=== PATIENT | male | born 1970 | race Caucasian/White ===

== ENCOUNTER → 2019-04-16 | Outpatient (CLI) | payer MEDICAID, SELFPAY | END | disposition home or self-care (01) | LOC: SL 06:49 | PROVIDERS: Family Provider Student in an Organized Health Care Education/Training Program; PCP Student in an Organized Health Care Education/Training Program; Referring Provider Internal Medicine Critical Care Medicine; Visit Provider Internal Medicine Critical Care Medicine | DX: G47.33 Obstructive sleep apnea (adult) (pediatric) (principal) | CPT/HCPCS: 98960; G0463 ==

== ENCOUNTER → 2019-09-16 | Outpatient (CLI) | payer MEDICAID, SELFPAY ==
[2019-08-20 09:38] VITALS: BMI 37.8
== END | disposition home or self-care (01) ==
LOC: SL 19:51
PROVIDERS: Family Provider Student in an Organized Health Care Education/Training Program; PCP Student in an Organized Health Care Education/Training Program; Referring Provider Internal Medicine Critical Care Medicine; Visit Provider Internal Medicine Critical Care Medicine
DX: G47.33 Obstructive sleep apnea (adult) (pediatric) (principal)
CPT/HCPCS: 95811

== ENCOUNTER → 2019-10-08 06:39 | Outpatient (CLI) | payer MEDICAID, SELFPAY ==
[2019-08-20 09:38] VITALS: BMI 37.8
== END ==
PROVIDERS: Family Provider Student in an Organized Health Care Education/Training Program; PCP Student in an Organized Health Care Education/Training Program; Referring Provider Internal Medicine Critical Care Medicine; Visit Provider Internal Medicine Critical Care Medicine
DX: Z46.89 Encounter for fitting and adjustment of other specified devices (principal)

== ENCOUNTER → 2020-03-24 | Outpatient (CLI) | payer MEDICAID, SELFPAY ==
[2020-03-17 08:44] VITALS: BMI 37.8
--- NOTE | 2020-03-24 15:11 | MRI_ITS ---
STUDY: MRI RIGHT KNEE REASON FOR EXAM: Male, 50 years old. Pain. Twisting injury 7 months ago. TECHNIQUE: Standardized fat and water weighted pulse sequences were obtained in all 3 orthogonal planes. COMPARISON: None. FINDINGS: Normal medial meniscus. There is diffuse, less than 50% thickness articular cartilage loss of the medial femorotibial compartment. Normal medial femoral condyle and tibial plateau. Normal medial collateral ligamentous complex (MCL). Normal distal semimembranosus, gracilis and semitendinosus tendons. Normal lateral meniscus. Normal hyaline cartilage of the lateral femorotibial compartment. Normal lateral femoral condyle and tibial plateau. Normal proximal tibiofibular articulation. Normal lateral collateral (fibular) ligament. Normal popliteus tendon. Normal biceps femoris tendon. Normal anterior cruciate ligament (ACL). Normal posterior cruciate ligament (PCL). There is arthrosis of the patellofemoral articulation. There is diffuse, less than 50% thickness articular cartilage loss of the patellofemoral compartment. There is subchondral edema of the posterior patella. There is spurring of the patella. Normal medial and lateral patellar retinaculum. Normal quadriceps tendon. Normal patellar tendon. Normal Hoffa''s fat pad. There is a small volume joint effusion. The soft tissues are unremarkable. The otherwise visualized osseous structures are unremarkable. MRI/Lower Ext Joint Only (Routine) IMPRESSION: No meniscal tear. Degenerative change of the patellofemoral and medial compartments. Joint effusion. Electronically Signed: Chuck Ferrer MD at 14:46 EDT , Service support ,
== END | disposition home or self-care (01) ==
LOC: MRI 15:11
PROVIDERS: PCP Student in an Organized Health Care Education/Training Program; Referring Provider Orthopaedic Surgery; Visit Provider Orthopaedic Surgery
DX: M23.91 Unspecified internal derangement of right knee (principal)
CPT/HCPCS: 73721

== ENCOUNTER → 2021-08-31 16:45 | Outpatient (CLI) | payer MEDICAID, SELFPAY ==
--- NOTE | 2021-08-31 16:46 | MRI_ITS ---
EXAM: MR Lumbar Spine Without Intravenous Contrast CLINICAL INDICATION: 51 years old, Male; pain TECHNIQUE: Multiplanar and multisequence MR images of the lumbar spine without intravenous contrast. This report was created using [employer] report generation technology. COMPARISON: None. FINDINGS: Vertebrae: Schmorl''s nodes in the superior endplates of L3 and L4. Degenerative facet arthropathy lower lumbar spine. Vertebral body heights are preserved. Normal alignment. No spondylolisthesis. There is preservation of the normal lumbar lordosis. Spinal cord: Conus medullaris tip is at T12-L1. Soft tissues: Unremarkable. DISCS/SPINAL CANAL/NEURAL FORAMINA: L1-L2: Degenerative disc bulge at L1-L2 with left lateral disc protrusion causing ventral effacement of the thecal sac but no spinal canal stenosis. There is a mild left neural foraminal stenosis due to these findings. L2-L3: Unremarkable. Normal disc height and morphology. Normal spinal canal, lateral recesses and neuroforamina. L3-L4: Broad-based disc bulge at L3-L4 causes ventral effacement of the thecal sac but no significant spinal canal stenosis. There is a mild bilateral neural foraminal stenosis due to these findings. L4-L5: Broad-based disc bulge at L4-L5 causes no significant spinal canal stenosis but moderate bilateral neural foraminal stenoses. L5-S1: Central disc protrusion with annular tear at L5-S1 causes ventral effacement of the thecal sac but no significant stenosis. MRI/Spine Lumbar (Routine) IMPRESSION: 1. Degenerative disc bulge at L1-L2 with left lateral disc protrusion causing ventral effacement of the thecal sac but no spinal canal stenosis. There is a mild left neural foraminal stenosis due to these findings. 2. Broad-based disc bulge at L3-L4 causes ventral effacement of the thecal sac but no significant spinal canal stenosis. There is a mild bilateral neural foraminal stenosis due to these findings. 3. Broad-based disc bulge at L4-L5 causes no significant spinal canal stenosis but moderate bilateral neural foraminal stenoses. 4. Central disc protrusion with annular tear at L5-S1 causes ventral effacement of the thecal sac but no significant stenosis. ASSESSMENT: ABNORMAL report - There are abnormal findings in this report which may be related or unrelated to the reason for the exam. Electronically Signed: Yony Bishop MD at 21:57 EDT Tel , Service support ,
== END ==
PROVIDERS: PCP Student in an Organized Health Care Education/Training Program
DX: M47.816 Spondylosis without myelopathy or radiculopathy, lumbar region (principal); M53.3 Sacrococcygeal disorders, not elsewhere classified; M54.50 Low back pain, unspecified
CPT/HCPCS: 72148

== ENCOUNTER 2023-10-03 10:23 | Day surgery (SDC) | payer MEDICAID, SELFPAY ==
[2023-10-03] VITALS (7 sets, daily range): BP systolic 133–149; BP diastolic 86–95; PULSE 57–81; RESP 16–18; TEMP 36.2–37.4; O2SAT 93–100; BMI 35.7
[2023-10-03] MEDS: Lactated Ringers 1,000 ML 15 ML IV (10:59)
[2023-10-03] MEDS: Cefazolin 2 GM in 0.9% Normal Saline (100mL Bag) 100 ML IV (13:56)
--- NOTE | 2023-10-03 14:08 | RAD_ITS ---
STUDY: X-RAY - LUMBAR SPINE REASON FOR EXAM: Male, 53 years old. INSERTION, SPINAL CORD STIMULATOR TECHNIQUE: 2 view(s) of the lumbar spine were obtained. COMPARISON: None FINDINGS: 361 seconds of fluoroscopy of the thoracic spine was utilized operative room during a dorsal column spinal stimulator placement 2 images are cemented for interpretation.. . RAD/Lumbar Spine 2 or 3 Views IMPRESSION: Fluoroscopy during dorsal column spinal stimulator placement. Electronically Signed: Baudilio Sanchez MD at 0:08 EST ,
[2023-10-03] MEDS: Bupivacaine 0.25% 30 ML Vial (15:26)
[2023-10-03] MEDS: Lidocaine 1% /Epi 1:100 (50ml) 50 ML VIAL (15:29)
--- NOTE | 2023-10-03 18:17 | SUR.PHASEII ---
pt called- talked with and informed them that dr gomez sent prescriptions to [facility] pharmacy for antbx and pain medication to be picked up. pt's voices understanding
== END 2023-10-03 17:15 | disposition home or self-care (01) ==
LOC: SDC 10:24 → AC 10:26
PROVIDERS: PCP Nurse Practitioner Family; Referring Provider Anesthesiology Pain Medicine; Visit Provider Anesthesiology Pain Medicine
PROC: (CPT 63685; principal; 2023-10-03 12:00)
DX: G89.4 Chronic pain syndrome (principal); E11.9 Type 2 diabetes mellitus without complications; M54.50 Low back pain, unspecified; M79.604 Pain in right leg; M79.605 Pain in left leg; I10 Essential (primary) hypertension; M19.90 Unspecified osteoarthritis, unspecified site; J45.909 Unspecified asthma, uncomplicated; Z79.899 Other long term (current) drug therapy
CPT/HCPCS: 63685; 63650 ×2; 00300; 72100; 76000; C1778; C1820; J7120; J2405

== ENCOUNTER → 2024-04-22 | Outpatient (CLI) | payer MEDICAID, SELFPAY ==
--- NOTE | 2024-04-22 15:24 | MRI_ITS ---
STUDY: MRI CERVICAL SPINE WITHOUT CONTRAST REASON FOR EXAM: Male, 54 years old. Pain TECHNIQUE: Standardized fat and water weighted pulse sequences were obtained in the sagittal and axial planes. COMPARISON: None FINDINGS: Normal foramen magnum and brainstem-cervical cord junction. Normal craniovertebral junction. Normal anterior atlantoaxial articulation. Normal odontoid process. There is straightening of the normal cervical lordosis. Normal vertebral bodies and posterior osseous elements. There is no fracture. C2-3: Normal endplates. Normal disc height, signal and morphology. Normal central canal and intervertebral neural foramina. C3-4: Mild spurring with central right paracentral disc protrusion, series 11 image 120. Moderate canal stenosis. Mild right foraminal narrowing C4-5: Mild spurring with central disc protrusion series 11 image 98. Moderate canal stenosis. Right foraminal narrowing. C5-6: Central left paracentral disc protrusion, series 11 image 76. Moderate canal stenosis. Neural foramina are patent. C6-7: Mild spurring and right paracentral disc protrusion, series 11 image 53. Moderate canal stenosis. Right greater than left foraminal narrowing. C7-T1: Normal endplates. Normal disc height, signal and morphology. Normal central canal and intervertebral neural foramina. Normal cervical cord. Normal visualized soft tissue structures. MRI/Spine Cervical (Routine) IMPRESSION: Degenerative change with disc herniations, canal stenosis, and foraminal narrowing. Electronically Signed: Chuck Ferrer MD at 10:42 EDT ,
== END | disposition home or self-care (01) ==
PROVIDERS: PCP Nurse Practitioner Family; Referring Provider Orthopaedic Surgery; Visit Provider Orthopaedic Surgery
DX: M48.02 Spinal stenosis, cervical region (principal); M47.812 Spondylosis without myelopathy or radiculopathy, cervical region
CPT/HCPCS: 72141

== ENCOUNTER 2024-06-11 13:48 | Emergency (ER) | payer MEDICAID, SELFPAY ==
[2024-06-11 13:49] VITALS: BP 135/97; PULSE 103; RESP 20; TEMP 36.3; O2SAT 99; BMI 35.2
--- NOTE | 2024-06-11 14:32 | CT_ITS ---
EXAM: CT LEFT LOWER EXTREMITY WITH INTRAVENOUS CONTRAST CLINICAL INDICATION: left thigh hematoma TECHNIQUE: Helically acquired images were obtained of the left lower extremity with intravenous contrast. 2-D reformats were performed by the technologist. This CT exam was performed using one or more of the following dose reduction techniques: automated exposure control, adjustment of the mA and/or kV according to patient size, and/or use of iterative reconstruction technique. CONTRAST: 100ml [id number] COMPARISON: No relevant prior studies available. FINDINGS: BONES/JOINTS: Hip and knee joints appear intact. No acute fracture or subluxation. SOFT TISSUES: 19 cm long 5.2 cm wide intramuscular hematoma involves the left semimembranosus muscle compartment. Mild edematous changes of the medial subcutaneous tissues of the thigh. No radiopaque foreign body. CT/Extremity Lower WITH Contrast IMPRESSION: Large intramuscular hematoma involving the left semimembranosus muscle compartment. Electronically Signed: Robert Church MD at 16:09 EDT ,
[2024-06-11] MEDS: 0.9% Normal Saline (1000mL) 1,000 ML 150 ML IV (14:45)
[2024-06-11] MEDS: Ondansetron 4 MG/2 ML Vial IV (14:45)
[2024-06-11] MEDS: HYDROmorphone 1 MG/ML Syringe 0.5 MG IV (14:50)
[2024-06-11 14:57] LABS: Absolute Lymphocyte Count 1.64 X10^3/uL (0.83-4.51); Absolute Neutrophil Count 9.4 X10^3/uL (2.0-7.7); Basophil# 0.07 X10^3/uL; Basophil% 0.6 % (0-1); Eosinophil# 0.08 X10^3/uL; Eosinophils% 0.7 % (0-5); Hematocrit 46.3 % (40-54); Hemoglobin 15.5 g/dL (13.0-16.5); Lymphocyte # 1.64 X10^3/ul (0.83-4.51); Lymphocyte % 13.8 % (19-41); Mean Corp Hgb Conc 33.5 g/dL (32-36); Mean Corpuscular Hgb 27.7 pg (27.0-32.0); Mean Corpuscular Volume 82.7 fL (80-94); Mean Platelet Vol. 9.1 fl (6.2-12.0); Monocyte# 0.68 X10^3/uL; Monocyte% 5.7 % (0-10); NRBC Flagged by Analyzer 0 % (0-5); Neutrophil # 9.38 X10^3/uL (2.7-7.7); Neutrophil % 78.9 % (47-70); Platelet Count 211 K/mm3 (150-450); RBC Distribution Width SD 44.2 fl (35.1-43.9); White Blood Count 11.9 K/mm3 (4.4-11.0)
[2024-06-11 15:06] LABS: International Normalized Ratio 1.1; Prothrombin Time (Protime)PT. 14.5 SECONDS (11.7-14.9)
[2024-06-11 15:07] LABS: Partial Thromboplast Time 30.1 Seconds (24.1-36.2)
--- NOTE | 2024-06-11 15:18 | EDS_ITS ---
HPI History of Present Illness Chief Complaint: Lower Extremity Injury Informant: patient Narrative Narrative: Patient presents with left hamstring injury that occurred on June 04. He was running and fell, injury his left hamstring. 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 Patient was seen at [facility] 3 times over the course of the past week. He had a venous ultrasound that showed no evidence of DVT. He then had a CT scan of the leg with contrast that revealed his hamstring was torn from the bone with a large hematoma. It was initially felt he would require transfer to tertiary center, but was ultimately discharged to home. Patient states he called [facility] today and was told to come to [place] [facility] for a second opinion. Patient states that he has Percocet at home but has not been taking it. [facility] Medical History Wears glasses Wears dentures Anxiety CPAP (continuous positive airway pressure) dependence Sleep apnea Non-smoker History of stress test History of echocardiogram Cardiology follow-up encounter Prediabetes Obesity (BMI 30-39.9) Tubular adenoma Dyslipidemia Depression Atherosclerosis of coronary artery of [place] heart Essential (primary) hypertension Back pain with sciatica Hydrocele in adult Facet arthritis, degenerative, L5-S1 level, lumbosacral spine ALLEN (obstructive sleep apnea) Rhinosinusitis Inguinal hernia, right Injury of hip, right Hydrocele, right Stable angina Anxiety Home Medications ?Medication ?Instructions ?Recorded ?Last Taken ?Type escitalopram oxalate 10 mg tablet 10 mg PO DAILY 07/25/21 Unknown History carvedilol 25 mg tablet 25 mg PO BID 11/21/22 Unknown History hydrochlorothiazide 25 mg tablet 25 mg PO DAILY 11/21/22 Unknown History losartan 100 mg tablet 100 mg PO DAILY 11/21/22 10/03/23 History potassium chloride 20 mEq 40 meq PO DAILY #30 tabs 11/21/22 Unknown History tablet,extended release(part/cryst) ezetimibe 10 mg tablet 10 mg PO 12/29/23 Unknown History rosuvastatin 40 mg tablet 40 mg PO 12/29/23 Unknown History tramadol 50 mg tablet 50 mg PO Q6H PRN pain #14 tabs 06/11/24 Unknown Rx Allergy/AdvReac Type Severity Reaction Status Date / Time No Known Allergies Allergy Verified 06/11/24 13:49 Family History Mother Asthma Other Cancer Diabetes Hypertension Surgical History Hx laparoscopic cholecystectomy History of cardiac cath (~2016) H/O hernia repair (~2012) Social History Smoking Status: Never smoker second hand exposure: No alcohol intake: current alcohol intake frequency: holidays/special occasions only substance use type: does not use caffeine: Yes Type: carbonated beverages Number of servings: 2 ROS ROS ED Constitutional Constitutional ED: Denies chills or fever(s) ENT ENT ED: Denies rhinorrhea or sore throat Cardiovascular Cardiovascular: Denies chest pain or palpitations Respiratory/Chest Respiratory/Chest: Denies cough or dyspnea Gastrointestinal Gastrointestinal: Denies abdominal pain, diarrhea, nausea or vomiting Genitourinary Genitourinary ED: Denies dysuria Musculoskeletal Musculoskeletal: Reports arthralgias Integumentary Reports other Details: bruising left leg Neurologic Neurologic: Denies headache(s) Psychiatric Psychiatric: Denies anxiety or depression EXAM Physical Exam Const Vital Signs: 06/11/24 13:49 06/11/24 15:48 Temperature 97.4 F L Temperature Source Temporal Pulse Rate 103 H 98 Respiratory Rate 20 H 16 Blood Pressure 135/97 H 132/90 H Blood Pressure Mean 109 104 Pulse Ox 99 94 Oxygen Delivery Method Room Air Room Air Positive well nourished and well developed General Appearance ED: well developed HEENT Reports moist mucous membranes Eyes EOMs intact bilaterally Chest Wall inspection of chest normal and palpation of chest normal Resp normal respiratory effort and clear to auscultation bilaterally Cardio regular rate and regular rhythm GI non-tender Palpation: soft Extremity Extremity Narrative: Left thigh edema with ecchymosis up to groin line. Good distal pulses. Neuro oriented x3 Skin Skin Narrative: Ecchymosis left thigh as above. MDM MDM MDM Narrative Medical decision making narrative: IV line established. Patient given a small dose of Dilaudid for pain Labwork will be obtained paula evaluate for anemia. CT scan of the leg will also be obtained to evaluate for any continued acute bleeding. History & Record Review Discussion w/independent historian: Patient Lab Data Attestation: I reviewed the patient's lab results. Labs: Laboratory Results - last 24 hr 06/11/24 14:45 WBC 11.9 H RBC 5.60 Hgb 15.5 Hct 46.3 MCV 82.7 MCH 27.7 MCHC 33.5 RDW Std Deviation 44.2 H RDW Coeff of Jorge 15.0 H Plt Count 211 MPV 9.1 Immature Gran % (Auto) 0.300 Neut % (Auto) 78.9 H Lymph % (Auto) 13.8 L Garrard % (Auto) 5.7 Eos % (Auto) 0.7 Baso % (Auto) 0.6 Absolute Neuts (auto) 9.4 H Absolute Lymphs (auto) 1.64 Nucleated RBC % 0 PT 14.5 INR 1.1 APTT 30.1 Sodium 139 Potassium 3.7 Chloride 102 Carbon Dioxide 30.0 Anion Gap 7 BUN 10 Creatinine 0.92 Estim Creat Clear Calc 115.95 Est GFR (MDRD) Af Amer 110 Est GFR (MDRD) Non-Af 91 BUN/Creatinine Ratio 10.9 Glucose 165 H Calcium 8.1 L Radiography Diagnostic Testing: Clinical Impression(s) from Imaging Studies Lower Extremity CT 06/11/24 14:32 IMPRESSION: Large intramuscular hematoma involving the left semimembranosus muscle compartment. Electronically Signed: Robert Church MD at 16:09 EDT Reading Location ID and State: [facility] Tel , Service support , Treatment and Re-Evaluation :: White blood cell count is slightly elevated 11.9 with 78% neutrophils. Hemoglobin is 15.5 and hematocrit is 46.3. Yesterday his hemoglobin was 16.5 and hematocrit 48.5. Chemistry studies are unremarkable other than a glucose of 165. Coags are normal. CT scan of the left lower extremity with IV contrast at this time shows a large intramuscular hematoma involving the left semimembranous muscle compartment. Today the hematoma is measuring 19 cm x 5.2 cm. I was able to pull up the report of the patient's CT yesterday. At that time they commented that the hematoma measured 26.6 cm in length and 6.7 x 7.8 cm in width and depth. At that time they noted focal arterial enhancement concerning for active extravasation. There is no evidence of extravasation on today's scan. I spoke with Dr. Olson. He was not aware of the patient as he was not in the office today. Patient has a follow-up ointment scheduled with him early next week. He agreed that as long as the patient does not have evidence of compartment syndrome, he could be discharged home with supportive care. We will wrap his left thigh with an Adam wrap. He has crutches at home to use. He states he is not taking the Percocet because he does not like taking pills and does not want to feel drugged up. He can use Tylenol or ibuprofen. I will also write #2 few tramadol to see if this helps him. Patient comfortable with the plan. Return instructions given. Discharge Plan Triage Chief Complaint: Lower Extremity Injury ED Provider: Zenaida Senior Dx/Rx/DC Orders Clinical Impression: Hematoma of left thigh Instructions: ED Hematoma Prescriptions: New tramadol 50 mg tablet 50 mg PO Q6H PRN (Reason: pain) Qty: 14 0RF No Action potassium chloride 20 mEq tablet,ER particles/crystals 40 meq PO DAILY Qty: 30 escitalopram oxalate 10 mg tablet 10 mg PO DAILY carvedilol 25 mg tablet 25 mg PO BID Patient Comments: TAKE 1 TABLET BY MOUTH TWICE DAILY hydrochlorothiazide 25 mg tablet 25 mg PO DAILY losartan 100 mg tablet 100 mg PO DAILY rosuvastatin 40 mg tablet 40 mg PO Patient Comments: TAKE 1 TABLET BY MOUTH AT BEDTIME ezetimibe 10 mg tablet 10 mg PO Patient Comments: TAKE 1 TABLET BY MOUTH ONCE DAILY FOR HIGH CHOLESTEROL Primary Care Provider: Tiffany Cantu Referrals: Tejinder Olson DO [Med Staff - Active Staff] - Keep Dennys appointment Tiffany Cantu, [employer] [Primary Care Provider] - Print Language: Bangladeshi Disposition Disposition: Home, Self Care
[2024-06-11 15:20] LABS: Anion Gap 7 (5-15); BUN 10 mg/dL (7-18); BUN/Creat Ratio 10.9 RATIO (10-20); Calcium,Total 8.1 mg/dL (8.5-10.1); Chloride 102 mmol/L (98-107); Creatinine, Serum 0.92 mg/dL (0.70-1.30); EST Glomerular Filtration Rate 91 mL/min (>60); Est Glom Filt Rate - Afr Amer 110 mL/min (>60); Estimated Creatinine Clearance 115.95 ml/min; Glucose 165 mg/dL (74-106); Potassium 3.7 mmol/L (3.5-5.1); Sodium Level 139 mmol/L (136-145)
[2024-06-11 15:48] VITALS: BP 132/90; PULSE 98; RESP 16; O2SAT 94
== END 2024-06-11 17:03 | disposition home or self-care (01) ==
PROVIDERS: Emergency Provider Emergency Medicine; PCP Nurse Practitioner Family; Visit Provider Emergency Medicine
DX: S70.12XA Contusion of left thigh, initial encounter (principal); I25.10 Atherosclerotic heart disease of native coronary artery without angina pectoris; I10 Essential (primary) hypertension; E78.5 Hyperlipidemia, unspecified; W18.30XA Fall on same level, unspecified, initial encounter
CPT/HCPCS: 73701; 80048; 85025; 85610; 85730; 96361; 96374; 96375; 99283; J7030; Q9967; A4216; J2405

== ENCOUNTER → 2025-01-28 | Outpatient (CLI) | payer MEDICAID, SELFPAY ==
[2025-01-28 12:23] LABS: Absolute Lymphocyte Count 1.49 X10^3/uL (0.83-4.51); Absolute Neutrophil Count 4.5 X10^3/uL (2.0-7.7); Basophil# 0.05 X10^3/uL; Basophil% 0.8 % (0-1); Eosinophil# 0.11 X10^3/uL; Eosinophils% 1.7 % (0-5); Hematocrit 50.3 % (40-54); Hemoglobin 17.1 g/dL (13.0-16.5); Lymphocyte # 1.49 X10^3/ul (0.83-4.51); Mean Corpuscular Hgb 28.3 pg (27.0-32.0); Mean Corpuscular Volume 83.1 fL (80-94); Mean Platelet Vol. 9.7 fl (6.2-12.0); Monocyte# 0.35 X10^3/uL; Monocyte% 5.4 % (0-10); NRBC Flagged by Analyzer 0 % (0-5); Neutrophil # 4.47 X10^3/uL (2.7-7.7); Neutrophil % 68.8 % (47-70); Platelet Count 176 K/mm3 (150-450); RBC Distribution Width CV 14.9 % (11.6-14.6); RBC Distribution Width SD 45.1 fl (35.1-43.9); Red Blood Count 6.05 M/mm3 (4.6-6.2); White Blood Count 6.5 K/mm3 (4.4-11.0)
[2025-01-28 12:41] LABS: ALB/GLOB Ratio 1.3 RATIO (0.9-2.4); AST(SGOT) 28 U/L (<=37); Alanine Aminotransfer ALT/SGPT 32 U/L (<=46); Albumin, Serum 4.2 g/dL (3.5-5.0); Alkaline Phosphatase 82 U/L (40-129); Anion Gap 11 (5-15); BUN 11 mg/dL (4-19); BUN/Creat Ratio 13.1 RATIO (10-20); Calcium,Total 8.8 mg/dL (7.6-11.0); Carbon Dioxide 27.2 mmol/L (21.0-32.0); Chloride 102 mmol/L (98-108); EST Glomerular Filtration Rate 106 (>60); Globulin 3.2 g/dL (2.2-4.2); Glucose 137 mg/dL (70-99); Potassium 3.8 mmol/L (3.3-5.1); Protein, Total 7.4 g/dL (5.9-8.4); Sodium Level 140 mmol/L (133-145); Total Bilirubin 1.98 mg/dL (0.00-1.30)
[2025-01-28 13:47] LABS: Cholesterol 179 mg/dL (<=200); High Density Lipoprotein 37 mg/dL; Low Density Lipoprotein Calc. 99 mg/dL; Triglycerides 215 mg/dL; Very Low Density Lipoprotein 43 mg/dL (5-40); cholesterol:hdl ratio screen 4.79
[2025-01-28 17:12] LABS: Hemoglobin A1c 6.3 % (<=5.6)
== END | disposition home or self-care (01) ==
LOC: BIMLAB 09:49
PROVIDERS: PCP Internal Medicine; Referring Provider Internal Medicine; Visit Provider Internal Medicine
DX: I10 Essential (primary) hypertension (principal); R73.09 Other abnormal glucose
CPT/HCPCS: 36415; 80053; 80061; 83036; 85025

== ENCOUNTER → 2025-03-02 | Outpatient (CLI) | payer MEDICAID, SELFPAY ==
--- NOTE | 2025-03-02 11:33 | EKG12_ITS ---
Test Reason : CHEST PAIN Blood Pressure : */* mmHG Vent. Rate : 82 BPM Atrial Rate : 82 BPM P-R Int : 148 ms QRS Dur : 96 ms QT Int : 396 ms P-R-T Axes : 48 12 -1 degrees QTcB Int : 462 ms Normal sinus rhythm Inferior infarct , age undetermined Abnormal ECG Confirmed by CONNIE CARTER, ZEINA ([id number]), offline editor CAN HAGEN ([id number]) on 03/02/2025 1:45:10 PM Referred By: Radha Loaiza Confirmed By: ZEINA ROSALES MD
--- NOTE | 2025-03-02 14:43 | STRESSREP ---
Stress Test Report Exercise stress test. 54-year-old man with a history of chest pain Stress protocol: Resting EKG demonstrates normal sinus rhythm with a rate of 82 bpm resting blood pressure is 132/88 mmHg. The patient exercised according to the regular Branden protocol for a total duration of 7 minutes attaining a maximum heart rate of 150 bpm which was 89% of maximum predicted heart rate; the maximum workload was 10 METS metabolic equivalents. At rest there were no ST or T wave changes noted to suggest ischemia and at peak exercise upsloping ST changes only were noted which did not meet the criteria for ischemia. No clinical angina was noted the test was terminated due to the target heart rate being achieved/fatigue. The peak blood pressure was 180/98 mmHg. Rate-pressure product was 24,100. Conclusion: Stress test with no EKG criteria for ischemia at a high workload.
== END | disposition home or self-care (01) ==
LOC: CVS 11:31
PROVIDERS: PCP Internal Medicine; Referring Provider Internal Medicine; Visit Provider Internal Medicine
DX: R07.9 Chest pain, unspecified (principal)
CPT/HCPCS: 93005; 93017

== ENCOUNTER → 2025-03-04 | Outpatient (CLI) | payer MEDICAID, SELFPAY ==
[2025-03-04 15:21] LABS: Absolute Neutrophil Count 6.2 X10^3/uL (2.0-7.7); Basophil# 0.08 X10^3/uL; Basophil% 0.9 % (0-1); Eosinophil# 0.15 X10^3/uL; Eosinophils% 1.7 % (0-5); Hematocrit 50.3 % (40-54); Hemoglobin 17.4 g/dL (13.0-16.5); Lymphocyte % 21.7 % (19-41); Mean Corp Hgb Conc 34.6 g/dL (32-36); Mean Corpuscular Hgb 28.9 pg (27.0-32.0); Mean Corpuscular Volume 83.6 fL (80-94); Mean Platelet Vol. 9.4 fl (6.2-12.0); Monocyte# 0.43 X10^3/uL; Monocyte% 4.9 % (0-10); NRBC Flagged by Analyzer 0 % (0-5); Neutrophil # 6.19 X10^3/uL (2.7-7.7); Neutrophil % 70.6 % (47-70); Platelet Count 214 K/mm3 (150-450); RBC Distribution Width CV 14.6 % (11.6-14.6); RBC Distribution Width SD 43.4 fl (35.1-43.9); Red Blood Count 6.02 M/mm3 (4.6-6.2); White Blood Count 8.8 K/mm3 (4.4-11.0)
[2025-03-04 16:16] LABS: Thyroid Stim Hormone (TSH) 0.736 uIU/mL (0.300-4.200); Vitamin D,25 Hydroxy 12.6 ng/mL (30-100)
[2025-03-04 16:22] LABS: Anion Gap 11 (5-15); BUN 9 mg/dL (4-19); BUN/Creat Ratio 10.7 RATIO (10-20); Calcium,Total 8.8 mg/dL (7.6-11.0); Carbon Dioxide 27.6 mmol/L (21.0-32.0); Chloride 101 mmol/L (98-108); Creatinine, Serum 0.86 mg/dL (0.70-1.20); EST Glomerular Filtration Rate 103 (>60); Glucose 162 mg/dL (70-99); Potassium 3.9 mmol/L (3.3-5.1); Sodium Level 139 mmol/L (133-145)
== END | disposition home or self-care (01) ==
LOC: LAB 15:09
PROVIDERS: PCP Internal Medicine; Referring Provider Student in an Organized Health Care Education/Training Program; Visit Provider Student in an Organized Health Care Education/Training Program
DX: R53.83 Other fatigue (principal)
CPT/HCPCS: 36415; 80048; 82306; 84443; 85025

== ENCOUNTER → 2025-03-30 | Outpatient (CLI) | payer MEDICAID, SELFPAY ==
--- NOTE | 2025-03-30 14:35 | ECHOD_ITS ---
Reason For Study Reason For Study: Fatigue Procedure This was a 2D Doppler, Color Flow transthoracic echocardiogram. Exam performed in department. Left Ventricle Normal size and thickness. The LV systolic function is normal. EF is 60 %. Normal diastololic function. Right Ventricle Normal right ventricle. Atria The left and right atria are normal. Mitral Valve Normal mitral valve. Tricuspid Valve Trivial tricuspid valve insufficiency. Normal pulmonary artery pressure. Aortic Valve Trisinus/trileaflet aortic valve. Pulmonic Valve The pulmonic valve is not well visualized. Great Vessels Normal sized aortic root. Pericardium/Pleural No pericardial effusion. MMode/2D Measurements & Calculations LVIDd: 4.8 cm IVSd: 1.1 cm Ao root diam: 3.6 cm LVIDs: 3.0 cm LVPWd: 1.00 cm RVDd: 4.2 cm FS: 37.6 % LAV(MOD-sp2): 41.9 ml LVAd ap4: 25.9 cm2 SV(MOD-sp4): 37.0 ml LVLd ap4: 6.9 cm SI(MOD-sp4): 16.4 ml/m2 EDV(MOD-sp4): 78.0 ml EDV(sp4-el): 83.8 ml LVAs ap4: 18.5 cm2 LVLs ap4: 7.4 cm ESV(MOD-sp4): 41.0 ml ESV(sp4-el): 38.9 ml EF(MOD-sp4): 47.4 % EF(sp4-el): 53.6 % SV(sp4-el): 45.0 ml LA A4 area: 17.7 cm2 LA dimension(2D): 3.9 cm RA A4 area: 16.2 cm2 TAPSE: 2.0 cm Time Measurements MV dec time: 0.22 sec Doppler Measurements & Calculations MV E max dorian: 74.0 cm/sec Lat Peak E' Dorian: 9.6 cm/sec Med Peak E' Dorian: 10.2 cm/sec MV A max dorian: 81.2 cm/sec E/E' lat: 7.7 E/E' med: 7.2 MV E/A: 0.91 MV V2 max: 99.0 cm/sec MV P1/2t max dorian: 100.3 cm/sec Ao V2 max: 157.5 cm/sec MV max P.9 mmHg MV P1/2t: 83.1 msec Ao max P.9 mmHg MV V2 mean: 58.0 cm/sec Ao V2 mean: 113.7 cm/sec MV mean P.6 mmHg MV dec slope: 353.4 cm/sec2 Ao mean P.9 mmHg MV V2 VTI: 29.6 cm MVA(P1/2t): 2.6 cm2 Ao V2 VTI: 31.8 cm AV (velocity ratio): 0.77 LV V1 max: 117.6 cm/sec PA V2 max: 117.0 cm/sec TR max dorian: 273.7 cm/sec LV V1 max P.5 mmHg TR max P.0 mmHg LV V1 mean P.1 mmHg LV V1 mean: 82.2 cm/sec LV V1 VTI: 24.6 cm
== END | disposition home or self-care (01) ==
LOC: CVS 14:30
PROVIDERS: PCP Internal Medicine; Referring Provider Student in an Organized Health Care Education/Training Program; Visit Provider Student in an Organized Health Care Education/Training Program
DX: R06.09 Other forms of dyspnea (principal); R07.89 Other chest pain
CPT/HCPCS: 93306

== ENCOUNTER → 2025-11-14 | Outpatient (CLI) | payer MEDICAID, SELFPAY ==
--- NOTE | 2025-11-14 09:53 | MRI_ITS ---
PROCEDURE: SPINE LUMBAR (ROUTINE) 11/14/2025 REASON FOR EXAM: Lumbar radiculopathy TECHNIQUE: Procedure Code: MRISPL Modality: MR Procedure: SPINE LUMBAR (ROUTINE) COMPARISON: MRI lumbar spine 08/31/2021. FINDINGS: For the purposes of this report, the most caudal rectangular vertebral body will be designated L5. The next most caudal trapezoidal shaped vertebral body will be designated S1. The intervening disc at the lumbosacral angle is designated L5-S1. The normal lumbar lordosis is maintained. The lumbar vertebral bodies are normal in height. The lumbar vertebral bodies are normal in alignment. The lumbar bone marrow signal is within normal limits. Multilevel disc desiccation. There is no evidence of signal abnormality in the imaged distal spinal cord. The conus medullaris terminates at the level of T12-L1. T12-L1: No significant spinal canal stenosis or neural foraminal narrowing. L1-L2: Disc bulge flattens the ventral thecal sac. Bilateral facet arthrosis and uncovertebral spurring. Mild bilateral neural foraminal narrowing. L2-L3: Disc bulge flattens the ventral thecal sac. No significant neural foraminal narrowing. L3-L4: Disc bulge, bilateral facet arthrosis, and ligamentum flavum hypertrophy contribute to [id number] spinal canal stenosis and subarticular zone narrowing. There is crowding of the descending nerve roots. Mild bilateral neural foraminal narrowing. L4-L5: Disc bulge, bilateral facet arthrosis, and ligamentum flavum hypertrophy. Mild spinal canal stenosis. [id number] bilateral neural foraminal narrowing. The bilateral L4 exiting nerve roots abut the disc. L5-S1: Central disc extrusion with mild cranial migration and likely superimposing annular fissure indents the ventral thecal sac. No significant neural foraminal narrowing. The posterior paraspinal muscles are intact. There is a partially visualized right subcutaneous lead in the thoracolumbar region compatible with the neurostimulator lead. MRI/Spine Lumbar (Routine) IMPRESSION: Lumbar spondylosis most prominent at L3-L4 where there is [id number] spin al canal stenosis. Reading Location: [id number]
== END | disposition home or self-care (01) ==
LOC: OPMRI 09:51
PROVIDERS: PCP Internal Medicine; Referring Provider Student in an Organized Health Care Education/Training Program; Visit Provider Student in an Organized Health Care Education/Training Program
DX: M54.16 Radiculopathy, lumbar region (principal)
CPT/HCPCS: 72148